=== PATIENT | male | born 1950 | race Two or more races ===

== ENCOUNTER 2019-06-04 17:36 | Emergency (ER) | payer OTHER ==
[~2019-06-04] VITALS: Ht 175.3 cm; Wt 83.0 kg
[2019-06-04 17:52] VITALS: Ht 175.3 cm; Wt 83.0 kg
[2019-06-04 21:22] VITALS: BP 132/88
== END 2019-06-04 21:22 | disposition home or self-care (01) ==
LOC: ED 17:36
DX: S01.511A Laceration without foreign body of lip, initial encounter (principal); W54.0XXA Bitten by dog, initial encounter; Y93.89 Activity, other specified; Y92.89 Other specified places as the place of occurrence of the external cause; Y99.8 Other external cause status
CPT/HCPCS: J2001